=== PATIENT | female | born 1975 | race Caucasian/White ===

== ENCOUNTER 2019-12-02 23:00 | Emergency (ER) | payer BC, SELFPAY ==
--- NOTE | ~2019-12-02 | XR_ITS ---
XR chest 2V DATE: 12/02/2019 23:54 INDICATION: Chest pain TECHNIQUE: PA and lateral views COMPARISON: None FINDINGS: Normal heart size. No hilar or mediastinal enlargement. No pulmonary infiltrate or consolid ation, pleural effusion or pulmonary vascular congestion or pneumothorax. The included skeletal struc tures are normal. Surgical clips overlie the anterior upper abdomen on lateral view, likely due to cholecystectomy. IMPRESSION: No active cardiopulmonary disease Reviewed, dictated and finalized at location A. S PROPERTY MANAGER
[2019-12-02 23:10] VITALS: PULSE 50
--- NOTE | 2019-12-02 23:14 | ECG_ITS ---
Measurements Intervals [place] Rate: 55 P: 57 [place]: 157 QRS: 46 QRSD: 100 T: 45 QT: 438 QTc: 422 Interpretive Statements SINUS BRADYCARDIA MINIMAL Q WAVES- INFERIOR LEADS BASELINE WANDER- AVR, AVL, AVF, V1-V6 BORDERLINE ECG Electronically Signed On 12-03-2019 7:53:30 [employer]GER by Nelson Arellano D.O.
[2019-12-02 23:18] VITALS: BP 114/46; PULSE 50; RESP 18; TEMP 37; O2SAT 100
[2019-12-02 23:50] LABS: Basophils Absolute Auto 0.04 K/mm3 (0.00-0.10); Basophils Percent Auto 0.4 % (0.0-1.0); Eosinophils Absolute Auto 0.23 K/mm3 (0.02-0.50); Eosinophils Percent Auto 2.4 % (1.0-6.0); Hematocrit 34.3 % (35.0-49.0); Immature Granulocyte Absolute 0.02 K/mm3 (0.00-0.00); Immature Granulocyte Percent A 0.2 % (0.0-0.0); Lymphocytes Absolute Auto 2.52 K/mm3 (1.10-4.50); Lymphocytes Percent Auto 26.8 % (18.0-42.0); Mean Corpuscular HGB Conc 32.1 g/dL (32.0-36.0); Mean Corpuscular Hemoglobin 28.1 pg (27.0-31.0); Mean Corpuscular Volume 87.5 fL (78.0-102.0); Mean Platelet Volume 9.8 fl (9.2-11.8); Monocytes Absolute Auto 0.56 K/mm3 (0.10-0.90); Neutrophils Percent Auto 64.2 % (50.0-70.0); Platelet Count Result 325 K/mm3 (150-420); Red Blood Count 3.92 M/mm3 (4.20-5.40); Red Cell Distribution Width 13.5 % (11.6-14.4); White Blood Count 9.4 K/mm3 (4.8-10.8)
[2019-12-03 00:03] LABS: Prothrombin Time 10.2 Seconds (9.64-11.0)
[2019-12-03 00:06] LABS: BNP 12.7 pg/mL (0-100)
[2019-12-03 00:13] LABS: Anion Gap 13.4 mmol/L (7-16); Blood Urea Nitrogen 12 mg/dL (7-18); Calcium 8.6 mg/dL (8.5-10.1); Carbon Dioxide 28 mmol/L (21-32); Chloride 102 mmol/L (98-108); Estimated CRCL calculation 84 ml/min; Estimated Glomerular Filt Rate > 60; Glucose 129 mg/dL (70-99); Lipase 90 U/L (73-393); Osmolality Calculated 291 mOsm/kg (285-295); Potassium 3.4 mmol/L (3.5-5.1); Sodium 140 mmol/L (136-145)
[2019-12-03 00:14] LABS: Troponin I < 0.02 ng/mL (0.00-0.056)
--- NOTE | 2019-12-03 00:17 | PC.NURSE ---
erp in with pt , discussing plan of care. no complaint of chest pain at this time
--- NOTE | 2019-12-03 00:25 | ED.GENADULT ---
HPI - General Adult General Chief complaint: Chest Pain Stated complaint: chest pain Source: patient Mode of arrival: ambulatory Limitations: no limitations History of Present Illness HPI narrative: Doris is a 44-year-old woman that presented to the emergency department chest pain. She woke up with a Moderate pressure paiin her chest that radiated to her back. It was associated with nausea but no vomiting cold sweats and anxiety. The pain woke her up from rest. It is not worse with activity. she smoked for about 20 years but quit a year ago. She denies alcohol and illegal drugs. She has no family history of cardiac disease. Related Data Home Medications Medication Instructions Recorded Confirmed No Home Medications 12/02/19 12/02/19 Allergies Allergy/AdvReac Type Severity Reaction Status Date / Time No Known Allergies Allergy Unverified 11/08/13 12:55 Review of Systems Constitutional: Constitutional: Denies body ache(s) and Denies fever(s) Eyes: Eyes: Denies change in vision ENT: Denies vertigo Cardiovascular: Cardiovascular: Denies syncope and Denies edema Respiratory: Respiratory: Denies cough Gastrointestinal: Gastrointestinal: Denies abdominal pain, Denies diarrhea, Denies nausea and Denies vomiting Genitourinary: Genitourinary: Denies dysuria Musculoskeletal: Musculoskeletal: Denies deformity Neurologic: Denies Normal hearing present, Denies behavioral changes, Denies confusion, Denies vertigo, Denies dizziness, Denies syncope and Denies loss of vision Psychiatric: Psychiatric: Denies anxiety, Denies behavioral changes, Denies confusion and Denies depression Endocrine: Endocrine: Reports no additional endocrine complaints Hematologic/Lymphatic: Hematologic/Lymphatic: Reports no additional hematologic/lymphatic complaints Allergic/Immunologic: Allergic/Immunologic: Reports no additional allergic/immunologic complaints Exam Const: General: no acute distress and alert Orientation/consciousness: patient oriented x3 HENMT: Other: normocephalic, atraumatic, EOMI Eyes: Pupils: Equal, round and reactive pupils present Neck: Neck: normal visual inspection Chest: Chest palpation & inspection: normal inspection of the chest Resp: Effort & Inspection: normal respiratory effort Auscultation: clear to auscultation bilaterally Cardio: Rate: regular rate Rhythm: regular rhythm Heart sounds: no murmurs Other: no lower extremity edema GI: GI Palp: Yes Soft to palpation, No Tenderness to palpation present (GI) and No Guarding due to palpation present (GI) Back/Spine/Pelvis: Back: no CVA tenderness Skin: General skin exam: normal color Neuro: General: patient oriented x3, moves all extremities and CN's II-XI intact bilaterally Extrem: General: normal to inspection Psych: Mental Status: mental status grossly normal Course Course Emergency Course: Doris was seen and evaluated. ordered EKG, CBC, BMP, BNP chest x-ray to evaluate for causes chest pain. However, shortly into her ER stay her chest pain stopped. Her workup came back unremarkable except for a mildly elevated glucose. Given her heart score was 2 she was discharged after being given return precautions and instructed to follow-up with her PCP. Vital Signs Vital signs: Vital Signs Pulse Rate 50 L 12/02/19 23:10 Temperature 37.1 C 12/03/19 00:42 Pulse Rate 67 12/03/19 00:42 Respiratory Rate 18 12/03/19 00:42 Blood Pressure 114/67 12/03/19 00:42 Pulse Oximetry 97 12/03/19 00:42 Medical Decision Making [facility] Narrative Medical decision making narrative: Differential includes ACS versus aortic dissection versus chest wall pain versus costochondritis. Given her pain resolved and her lab work was unremarkable as most likely benign chest pain Vital Signs Vital Signs: Vital Signs Pulse Rate 50 L 12/02/19 23:10 Temperature 37.1 C 12/03/19 00:42 Pulse Rate 67 12/03/19 00:42
[2019-12-03 00:42] VITALS: BP 114/67; PULSE 67; RESP 18; TEMP 37.1; O2SAT 97
== END 2019-12-03 00:44 | disposition home or self-care (01) ==
PROVIDERS: Emergency Provider Family Medicine; PCP Internal Medicine Geriatric Medicine
DX: R07.9 Chest pain, unspecified (principal); Z87.891 Personal history of nicotine dependence
CPT/HCPCS: 36415; 71046; 80048; 83690; 83880; 84484; 85025; 85610; 93005; 99283; 99284

== ENCOUNTER 2022-04-06 13:08 | Emergency (ER) | payer BC, SELFPAY ==
--- NOTE | ~2022-04-06 | XR_ITS ---
EXAMINATION: XR shoulder RT min 2V DATE: 04/06/2022 14:20 INDICATION: Right shoulder pain. TECHNIQUE: 4 views of right shoulder were obtained. COMPARISON: Chest 2 views 12/02/2019 FINDINGS: Bone alignment is normal. No acute fracture. There is an old healed fracture of right clavi ursula at the junction of the middle and distal thirds. Joint spaces are well maintained. IMPRESSION: 1. No acute fracture. Reviewed, dictated and finalized at location B. IMPRESSION: 1. No acute fracture.
[2022-04-06 13:15] VITALS: BP 126/63; PULSE 69; RESP 16; TEMP 36.6; O2SAT 98
--- NOTE | 2022-04-06 13:35 | ED.UPPEXIN ---
HPI - Extremity Injury (Upper) General Chief Complaint: Extremity Injury, Upper Stated Complaint: R SHOULDER/ARM PAIN Time Seen by Provider: 04/06/22 13:40 History of Present Illness HPI narrative: 46-year-old female patient is here with complaints of right shoulder pain since yesterday. She states that she gets frequent pain in the shoulder which is un aggravated. Apparently yesterday she helped carry some boards of word and picked up her granddaughter several times and at night she started experiencing pain to the point that she is unable to move her shoulder. She has been seen in the past by an orthopedic surgeon and was advised to stay on meloxicam as needed and the patient did start the does this morning again. She does not recall any direct injury to the shoulder. She has never had an injection to the shoulder joint itself. She states that the in the last 2 years she has had frequent bouts of pain to the point that it keeps her awake at night and she is unable to lay on that side or the opposite side for any relief. Denies any associated numbness or tingling down the arm. She denies any other neck pain or history of arthritis. Related Data Home Medications Medication Instructions Recorded Confirmed ergocalciferol (vitamin D2) 1,250 1 cap PO DAILY 04/06/22 04/06/22 mcg (50,000 unit) capsule omeprazole 20 mg capsule,delayed 1 cap PO DAILY 04/06/22 04/06/22 release semaglutide 0.25 mg or 0.5 mg (2 0.25 mg subcut WEEKLY 04/06/22 04/06/22 mg/1.5 mL) subcutaneous pen injector (Ozempic) Allergies Allergy/AdvReac Type Severity Reaction Status Date / Time No Known Allergies Allergy Verified 04/06/22 13:30 Review of Systems Review of Systems: All systems reviewed & are unremarkable except as noted in HPI and below Exam Narrative: s Const: General: healthy appearing, no acute distress (Moderate pain discomfort ) and alert Nutritional Appearance: well nourished Orientation/consciousness: patient oriented x3 Limitations: no limitations HENMT: Head: normal to inspection General nose exam: Normal external nose present Eyes: Pupils: Equal, round and reactive pupils present EOM: EOMs intact bilaterally Neck: Neck: normal visual inspection Chest: Chest palpation & inspection: normal inspection of the chest Resp: Effort & Inspection: normal respiratory effort Auscultation: clear to auscultation bilaterally Cardio: Rate: regular rate Rhythm: regular rhythm Skin: General skin exam: normal color Rashes: no rashes Wounds: no wounds Neuro: General: patient oriented x3 and CN's II-XI intact bilaterally Speech: normal speech Gait exam (Neuro): Normal gait present Extrem: General: normal to inspection Other: Right shoulder contour appears normal. There is no deformity. There is no swelling. The patient prefers her arm by the side and has very limited movement of the right shoulder. There is point tenderness along the anterior part of the joint line as well as over the deltoid insertion. The distal neurovascular status of the right upper extremity is normal. Left upper extremity appears normal. Course Course Emergency Course: Patient is aware of negative x-ray report. She is not aware of any old clavicle or injury. she states that the pain is mostly present when she tries to move the arm. I have advised her to wear an arm sling. An option of Medrol Dosepak was given to the patient and she was to hold off on that. Patient has been advised to follow-up with the orthopedist especially a shoulder specialist for further investigation and appropriate treatment. Will send the patient home with a script for a muscle relaxant Discharge Plan Discharge Clinical Impression: Acute shoulder pain Instructions: Shoulder Pain (ED) Additional Instructions: Wear an arm sling for comfort Take Tylenol 650 and Ibuprofen 600 mg every 6-8 hours as needed for pain Follow up with the orthopedistdanielle
[2022-04-06] MEDS: KETOROLAC (*BKC) 60 MG/2 ML VIAL IM (14:03)
[2022-04-06 14:49] VITALS: BP 134/88; PULSE 77; RESP 14; TEMP 36.6; O2SAT 98
== END 2022-04-06 14:50 | disposition home or self-care (01) ==
PROVIDERS: Emergency Provider Emergency Medicine; PCP Internal Medicine Geriatric Medicine
DX: M25.511 Pain in right shoulder (principal)
CPT/HCPCS: 73030; 96372; 99283; J1885

== ENCOUNTER → 2022-04-18 09:31 | Outpatient (CLI) | payer BC, SELFPAY ==
--- NOTE | ~2022-04-18 | MR_ITS ---
EXAMINATION: MR shoulder RT wo con DATE: 04/18/2022 11:03 INDICATION: Right shoulder pain, bursitis suspected, lateral right shoulder pain radiating down the a rm for 2 years, worsening in frequency. No trauma. TECHNIQUE: Magnetic resonance imaging (MRI) of the right shoulder was performed without intravenous c ontrast. Sequences included axial PD-weighted FS FSE, coronal oblique PD-weighted FS FSE and T2-weigh davy FS FSE, and sagittal oblique T2-weighted FS FSE and T1-weighted FSE. COMPARISON: X-ray right shoulder 04/06/2022. FINDINGS: Coracoacromial arch: Mild anterolateral downsloping of the type II acromion. Mild acromial tip enthesopathy. No significan t subcoracoid narrowing. Rotator cuff: Intact. Biceps tendon and glenoid labrum: Long and short heads of the biceps are intact. The long head of biceps tendon is situated normally in the bicipital groove. No labral tear. Fluid: Trace fluid signal in the anterior portion of the subacromial/subdeltoid bursa. No significant glenoh umeral fluid. Bones/cartilage: Marrow signal is benign and homogenous. Mild cartilage thinning in the glenohumeral joint. IMPRESSION: 1. Trace subacromial subdeltoid fluid, may reflect mild bursitis in the appropriate clinical context. 2. Mild glenohumeral cartilage thinning. Reviewed, dictated and finalized at location K. IMPRESSION: 1. Trace subacromial subdeltoid fluid, may reflect mild bursitis in the appropr iate clinical context. 2. Mild glenohumeral cartilage thinning.
== END ==
PROVIDERS: PCP Internal Medicine Geriatric Medicine; Visit Provider Orthopaedic Surgery
DX: M25.511 Pain in right shoulder (principal)
CPT/HCPCS: 73221